=== PATIENT | female | born 1985 | race African-American/Black ===

== ENCOUNTER 2016-09-27 13:01 | Inpatient (IN) | payer OTHER ==
[~2016-09-27] VITALS: Ht 162.6 cm; Wt 84.2 kg
[2016-09-27 13:18] VITALS: Ht 162.6 cm; Wt 84.2 kg
[2016-09-27] MEDS ORDERED: ACETAMINOPHEN 325 MG TAB PO PRN (14:00)
[2016-09-27 14:21] LABS: ADD SCAN DIFF NO
[2016-09-27] MEDS ORDERED: GLUCOSE GEL 15 GRAM TUBE PO PRN ×2 (14:30)
[2016-09-27] MEDS ORDERED: GLUCOSE GEL 15 GRAM TUBE BUCCAL PRN (14:30)
[2016-09-27] MEDS ORDERED: GLUCAGON 1 MG INJ IM PRN (14:30)
[2016-09-27] MEDS ORDERED: DEXTROSE 50% 50 ML SYRINGE IV PRN ×2 (14:30)
[2016-09-27 14:36] LABS: ALBUMIN 3.9 g/dl (3.3-4.9)
[2016-09-27 14:37] LABS: INR 0.9; POTASSIUM 3.8 mmol/L (3.5-5.1); PROTIME 12.1 Sec (12.2-14.2); PT RATIO 0.9
[2016-09-27 14:38] LABS: PARTIAL THROMBOPLASTIN TIME 25.1 Sec (25.0-35.0)
[2016-09-27 14:39] LABS: ALBUMIN/GLOBULIN RATIO 1.05; BILIRUBIN,INDIRECT 0.5 mg/dl (0-1.1); BILIRUBIN,TOTAL 0.5 mg/dl (0.2-1.3); CREATININE 0.75 mg/dl (0.44-1.00); TOTAL PROTEIN 7.6 g/dl (6.1-8.1)
[2016-09-27 14:40] LABS: CALCIUM 9.5 mg/dl (8.4-10.2)
[2016-09-27] MEDS: LACTATED RINGER'S 1,000 ML IV SCH ×2 (16:21→21:57)
[2016-09-27 18:03] LABS: BASOPHILS % 0.2 % (0.0-2.0); EOSINOPHILS % 0.3 % (0.0-7.0); HEMATOCRIT 41.5 % (37.0-47.0); HEMOGLOBIN 13.4 g/dl (12.0-16.0); LYMPHOCYTES # 1.4 10^3/ul (0.8-2.9); LYMPHOCYTES % 16.2 % (15.0-51.0); MEAN CORPUSCULAR HEMOGLOBIN 30.9 pg (29.0-33.0); MEAN CORPUSCULAR HGB CONC 32.3 g/dl (32.0-37.0); MEAN CORPUSCULAR VOLUME 95.8 fl (82.0-101.0); MEAN PLATELET VOLUME 12.5 fl (7.4-10.4); MONOCYTE # 0.9 10^3/ul (0.3-0.9); MONOCYTES % 10.1 % (0.0-11.0); NEUTROPHIL # 6.3 10^3/ul (1.6-7.5); NEUTROPHILS % 72.5 % (39.0-77.0); PLATELET COUNT 189 10^3/UL (140-415); RED BLOOD COUNT 4.33 10^6/ul (4.20-5.40); RED CELL DISTRIBUTION WIDTH 14.6 % (11.5-14.5); WHITE BLOOD COUNT 8.7 10^3/ul (4.8-10.8)
[2016-09-27] MEDS: MULTIVIT/MIN/FOLATE/IRON/PREN TAB PO SCH (18:41)
[2016-09-27] MEDS ORDERED: ACCU-CHEK XX SCH (20:05)
[2016-09-27] MEDS ORDERED: metFORMIN 850 MG TAB PO SCH (21:00)
[2016-09-27] MEDS ORDERED: ACYCLOVIR 400 MG TAB PO SCH (22:00)
[2016-09-28] MEDS: LACTATED RINGER'S 1,000 ML IV SCH ×2 (05:55→15:00)
[2016-09-28] MEDS ORDERED: metFORMIN 850 MG TAB PO SCH (08:00)
[2016-09-28] MEDS ORDERED: ACYCLOVIR 400 MG TAB PO SCH (09:00)
[2016-09-28] MEDS: MULTIVIT/MIN/FOLATE/IRON/PREN TAB PO SCH (09:05)
[2016-09-28] MEDS ORDERED: DEXTROSE 5%-LR 1,000 ML IV SCH (15:10)
[2016-09-28] MEDS ORDERED: CITRIC ACID/NA CITRATE 30 ML CUP ONE (16:41)
[2016-09-28] MEDS ORDERED: FAMOTIDINE 20 MG INJ ONE (16:41)
[2016-09-28] MEDS ORDERED: ONDANSETRON 4 MG INJ ONE ×2 (16:42→17:26)
[2016-09-28] MEDS ORDERED: morphine SULFATE/PF (10 MG/10 ML) INJ ONE (16:48)
[2016-09-28] MEDS ORDERED: FENTAnyl 50 MCG/ML VIAL ONE (16:48)
[2016-09-28] MEDS ORDERED: OXYTOCIN 30 UNITS/LR 500 ML IV PRN ×2 (17:00→21:00)
[2016-09-28] MEDS ORDERED: METHYLERGONOVINE 0.2 MG INJ IM PRN ×2 (17:00→21:00)
[2016-09-28] MEDS ORDERED: MISOPROSTOL 200 MCG TAB PR PRN ×2 (17:00→21:00)
[2016-09-28] MEDS ORDERED: CARBOPROST 250 MCG INJ IM PRN ×2 (17:00→21:00)
[2016-09-28] MEDS ORDERED: CEFAZOLIN 2 GM/50 ML (PMX) 50 ML IV SCH (17:00)
[2016-09-28] MEDS ORDERED: OXYTOCIN 30 UNITS/LR 500 ML IV SCH ×2 (17:00→19:00)
[2016-09-28] MEDS ORDERED: LACTATED RINGER'S 1,000 ML IV ONE (17:12)
--- NOTE | 2016-09-28 17:17 | PREOPHP ---
DATE OF ADMISSION: 09/27/2016 HISTORY OF PRESENT ILLNESS: A 30-year-old female 1, para 0, estimated delivery date 017 was admitted on 09/27/2016 after having an ultrasound in antepartum unit which revealed oligohyd ramnios. PAST MEDICAL HISTORY: Unremarkable. ALLERGIES: NO KNOWN ALLERGIES. FAMILY HISTORY: Noncontributory. PHYSICAL EXAMINATION: VITAL SIGNS: Patient is afebrile. Vital signs stable. HEAD, NECK AND CHEST: Within normal limits. ABDOMEN: Soft, nontender and gravid. EXTREMITIES: Within normal limits. NEUROLOGIC: Within normal limits. HOSPITAL COURSE: Patient with history of gestational diabetes. Patient had an ultrasound on 2016 which revealed oligohydramnios. Per recommendation of perinatologist, the patient was admitted to antepartum unit and given IV hydration. The patient has been scheduled for primary sec tion on 09/28/2016. The patient with history of genital herpes in the past. The patient has been o n suppressive therapy with acyclovir. Obstetric ultrasound also revealed breech presentation. The patient has been requesting for elective primary section since the patient does not desire to go through labor. The patient is for delivery by primary section. Risks, benefits and alternatives of the procedure were explained to the patient. The patient said she understood and ga ve informed consent for the procedure. Dictated By: AMAURI CABRERA/KHURRAM Conf#: [id number] DID#: [id number]
[2016-09-28] MEDS ORDERED: ONDANSETRON 4 MG INJ IV PRN ×2 (17:30→18:30)
[2016-09-28] MEDS ORDERED: MEPERIDINE 25 MG INJ IV PRN (17:30)
[2016-09-28] MEDS ORDERED: KETOROLAC 30 MG INJ IV PRN ×2 (17:30→18:30)
[2016-09-28] MEDS ORDERED: HYDROmorphONE (0.2 MG/ML) 10ML SYG IV PRN (17:30)
[2016-09-28] MEDS ORDERED: PROCHLORPERAZINE 10 MG INJ IV PRN ×2 (17:30→18:30)
[2016-09-28] MEDS ORDERED: DIPHENHYDRAMINE 50 MG INJ IV PRN ×2 (17:30→18:30)
[2016-09-28] MEDS ORDERED: CITRIC ACID/NA CITRATE 30 ML CUP PO ONE (17:30)
[2016-09-28] MEDS ORDERED: METOCLOPRAMIDE 10 MG INJ IV ONE (17:30)
[2016-09-28] MEDS ORDERED: FENTAnyl 50 MCG/ML VIAL IV PRN (17:30)
[2016-09-28] MEDS ORDERED: FAMOTIDINE 20 MG INJ IV ONE (17:30)
[2016-09-28] MEDS ORDERED: OXYTOCIN 30 UNITS/LR 500 ML IV ONE (17:40)
[2016-09-28] MEDS ORDERED: NALOXONE (0.4 MG/ML) INJ IV PRN (18:30)
[2016-09-28] MEDS ORDERED: ZOLPIDEM 5 MG TAB PO PRN (18:30)
[2016-09-28] MEDS ORDERED: HYDROmorphONE 1 MG/ML SYG IV PRN ×2 (18:30)
[2016-09-28] MEDS ORDERED: ONDANSETRON 4 MG INJ IV ONE (18:30)
--- NOTE | 2016-09-28 18:43 | OPR ---
DATE OF OPERATION: 09/28/2016 PREOPERATIVE DIAGNOSES: at 39 weeks with gestational diabetes, breech presentation and oligohydramnios. POSTOPERATIVE DIAGNOSES: at 39 weeks with gestational diabetes, breech presentation and oligohydramnios. OPERATION PERFORMED: Primary low transverse section. SURGEON: Amauri Mitchell MD. POLISHER BRASS: Dr. Worthington. ANESTHESIA: Spinal. ANESTHESIOLOGIST: Dr. Wolff PROCEDURE: The patient was taken to operating room and placed on the operating table. After successful spinal anesthesia was given, the patient was placed in supine position. The area was prepared and draped in the usual sterile fashion. Spinal anesthesia was tested and was satisfactory. Using a scalpel, Pfannenstiel incision was made about 2 fingerbreadths above the symphysis pubis. The incision was carried to the fascia. The fascia was incised and extended bilaterally with Pinzon scissors. Two Hetal's were used to separate the fascia from the muscle. The muscle was dissected down to peritoneum. The peritoneum was bluntly entered. Using a scalpel, a small transverse incision was made in the lower uterine segment of uterus. Upon entering the uterine cavity, bandage scissors were inserted to extend the incision and curved up. Baby was delivered from [place] breech presentation. After suctioning clear of amniotic fluid, the baby was handed off to the product marketing manager in attendance. Apgars were 7 and 9. The placenta was delivered without difficulty. The uterus was closed with #1 Monocryl continuous locking fashion. After assuring hemostasis, both ovaries and tubes were inspected, all looked normal. The peritoneal cavity was irrigated with warm saline. The peritoneum was closed with 2-0 Vicryl continuous. The fascia was closed with #1 continuous in 2 segments. The skin was closed with blair. ESTIMATED BLOOD LOSS: 600 mL. COMPLICATIONS: None. COUNTS: All counts were correct. Dictated By: AMAURI MITCHELL MD GD/NTS Conf#: [id number] DID#: [id number] MTDD
--- NOTE | 2016-09-28 19:32 | DELSUM ---
Delivery Summary A-C Datetime Report Generated by CPN: 09/28/2016 19:32 DELIVERY PERSONNEL Children Teacher: Chen Howard MATERNAL INFORMATION Delivery Anesthesia: Spinal Medications in Delivery: SEE ANESTHESIA NOTE Estimated Blood Loss (ml): 600 Placenta Cultured: No Maternal Complications: Other Other Maternal Complications: GDM, OLIGOHYDRAMNIOS, BREECH LABOR SUMMARY EDC: 10/05/2016 00:00 No. Babies in Womb: 1 Attempted: No Labor Anesthesia: None LABOR INFORMATION Reason for Induction: Oligohydramnios; Other Reason for Induction- Other: GDM Oxytocin: N/A Group B Beta Strep: Positive Antibiotics # of Doses: 1 Antibiotics Time of Last Dose: 09/28/2016 17:03 Steroids Given: None Reason Steroids Not Administered: Not Applicable MEMBRANES Membranes Rupture Method: Artificial Rupture of Membranes: 09/28/2016 17:19 Length of Rupture (hr): 0.03 Amniotic Fluid Color: Clear Amniotic Fluid Amount: Small Amniotic Fluid Odor: Normal STAGES OF LABOR Stage 3 hr: 0 Stage 3 min: 1 CSECTION DELIVERY Primary Indication: Breech Presentation Other Primary Indication: LOW UZIEL Other Secondary Indication: GDM CSection Urgency: Elective CSection Incidence: Primary Labor: No Labor Elective: Elective CSection Incision: Lower Uterine Transverse BABY A INFORMATION Infant Delivery Date/Time: 09/28/2016 17:21 Method of Delivery: Born in Route : No : N/A Forceps: N/A Vacuum Extraction: N/A Shoulder Dystocia : N/A SHOULDER DYSTOCIA BABY A Delivery Date/Time: 09/28/2016 17:21 PRESENTATION/POSITION BABY A Presentation: Breech Cephalic Presentation: N/A Vertex Position: N/A Breech Presentation: Complete PLACENTA INFORMATION BABY A Placenta Delivery Time : 09/28/2016 17:22 Placenta Method of Delivery: Manual Removal Placenta Status: Delivered SCORES BABY A Heart Rate 1 min: >100 bpm Resp Effort 1 min: Slow, Irregular Reflex Irritability 1 min: Cough/Sneeze/Pulls Away Muscle Tone 1 min: Active Motion Color 1 min: Blue/Pale Resuscitation Effort 1 min: Tactile Stimulation; Oxygen SCORE 1 MIN: 7 Heart Rate 5 min: >100 bpm Resp Effort 5 min: Good Cry Reflex Irritability 5 min: Cough/Sneeze/Pulls Away Muscle Tone 5 min: Active Motion Color 5 min: Body [place], Extremit Blue Resuscitation Effort 5 min: Tactile Stimulation SCORE 5 MIN: 9 INFANT INFORMATION BABY A Gestational Age at Delivery: 39.0 Gestational Status: Full Term- 39- 40.6 Weeks Outcome : Liveborn Condition : Stable Infant Sex: Male IDENTIFICATION/MEDS BABY A ID Band Number: [id number] ID Band Location: Right Leg; Left Arm Sensor Applied: Yes Sensor Number: [id number] Sensor Location : Cord Clamp Vitamin K Given : Not Given Erythromycin Given: Not Given WEIGHT/LENGTH BABY A Birthweight (gm): 3335 Infant Weight (lb): 7 Infant Weight (oz): 6 Length (in): 19.00 Infant Length (cm): 48.26 CORD INFORMATION BABY A No. Cord Vessels: 3 Nuchal Cord : N/A Cord Blood Taken: Yes Suction: Mouth; Nose ASSESSMENT BABY A Infant Complications: None Physical Findings at Delivery: Within Normal Limits Respirations: Appears Normal Bacteriologist Food/ALS Called : Yes Care By: RN AND RT Transferred To: Remains with Mother
[2016-09-28] MEDS ORDERED: LANOLIN 7 GM TUBE TOP PRN (21:00)
[2016-09-28] MEDS: SENNA/DOCUSATE NA (8.6MG/50MG) TAB PO SCH (21:00)
[2016-09-28] MEDS ORDERED: OXYCODONE/ACETAMINOPHEN (5/325) TAB PO PRN ×2 (21:00)
[2016-09-28 21:45] VITALS: BP 104/63; PULSE 85; RESP 18
[2016-09-28] MEDS: IBUPROFEN 800 MG TAB PO SCH (22:00)
[2016-09-28] MEDS ORDERED: IBUPROFEN 800 MG TAB PO SCH (22:00)
[2016-09-28] MEDS: OXYTOCIN 30 UNITS/LR 500 ML IV SCH (22:35)
[2016-09-29] VITALS: BP 106/64; PULSE 80; RESP 19
[2016-09-29] MEDS: OXYTOCIN 30 UNITS/LR 500 ML IV SCH (00:58)
[2016-09-29] MEDS: LACTATED RINGER'S 1,000 ML IV SCH ×5 (02:41→22:42)
[2016-09-29 04:00] VITALS: BP 134/79; PULSE 86; RESP 19
[2016-09-29 07:35] LABS: ADD SCAN DIFF NO
[2016-09-29 07:44] LABS: BASOPHILS % 0.1 % (0.0-2.0); EOSINOPHILS % 0.2 % (0.0-7.0); HEMATOCRIT 30.8 % (37.0-47.0); HEMOGLOBIN 10.4 g/dl (12.0-16.0); LYMPHOCYTES # 0.9 10^3/ul (0.8-2.9); LYMPHOCYTES % 10.7 % (15.0-51.0); MEAN CORPUSCULAR HEMOGLOBIN 32.4 pg (29.0-33.0); MEAN CORPUSCULAR HGB CONC 33.8 g/dl (32.0-37.0); MONOCYTE # 0.7 10^3/ul (0.3-0.9); MONOCYTES % 8.4 % (0.0-11.0); NEUTROPHILS % 80.1 % (39.0-77.0); PLATELET COUNT 156 10^3/UL (140-415); RED BLOOD COUNT 3.21 10^6/ul (4.20-5.40); RED CELL DISTRIBUTION WIDTH 14.1 % (11.5-14.5); WHITE BLOOD COUNT 8.7 10^3/ul (4.8-10.8)
[2016-09-29] MEDS: IBUPROFEN 800 MG TAB PO SCH ×3 (08:00→21:53)
[2016-09-29 08:30] VITALS: BP 104/55; PULSE 76; RESP 18
[2016-09-29] MEDS: SENNA/DOCUSATE NA (8.6MG/50MG) TAB PO SCH ×2 (09:00→21:53)
--- NOTE | 2016-09-29 11:12 | QN ---
Documentation Comment No complaint Afebrile VSS Abdomen soft ND POD #1 Stable Ambulate, Advance diet. AMAURI ASENCIO MD Sep 29, 2016 11:12
[2016-09-29 12:00] VITALS: BP 104/54; PULSE 74; RESP 18
[2016-09-29 15:50] VITALS: BP 103/59; PULSE 85; RESP 18
[2016-09-29 20:00] VITALS: BP 121/65; PULSE 103; RESP 19
[2016-09-30 03:57] VITALS: BP 104/57; PULSE 88; RESP 18
[2016-09-30] MEDS: IBUPROFEN 800 MG TAB PO SCH ×3 (05:38→22:37)
[2016-09-30 09:00] VITALS: BP 117/69; PULSE 100
[2016-09-30] MEDS: SENNA/DOCUSATE NA (8.6MG/50MG) TAB PO SCH ×2 (09:57→22:37)
[2016-09-30] MEDS: LACTATED RINGER'S 1,000 ML IV SCH (12:58)
--- NOTE | 2016-09-30 14:05 | QN ---
Documentation Comment Nocomplaint Afebrile VSS Abdomen soft Stable Continue present care. AMAURI ASENCIO MD Sep 30, 2016 14:05
[2016-09-30 17:00] VITALS: BP 108/58; PULSE 79; RESP 18
[2016-09-30 20:00] VITALS: BP 106/60; PULSE 80; RESP 20
[2016-10-01 04:00] VITALS: PULSE 73; RESP 20
[2016-10-01] MEDS: IBUPROFEN 800 MG TAB PO SCH ×2 (06:39→15:06)
[2016-10-01 07:59] VITALS: BP 94/71; PULSE 100; RESP 18
[2016-10-01] MEDS: SENNA/DOCUSATE NA (8.6MG/50MG) TAB PO SCH ×2 (08:44→21:00)
[2016-10-01] MEDS ORDERED: DIPHTH/TET/ACEL PERTUSS (ADULT) 0.5 ML VIAL IM* ONE (09:00)
[2016-10-01 16:00] VITALS: BP 114/76; PULSE 68; RESP 18
[2016-10-01 19:57] VITALS: BP 119/72; PULSE 88; RESP 20
--- NOTE | 2016-10-02 05:05 | DS ---
DATE OF ADMISSION: 09/27/2016 DATE OF DISCHARGE: 10/01/2016 ADMITTING DIAGNOSIS: at term with gestational diabetes and oligohydramnios. HISTORY: A 30-year-old female 1, para 0 at time of admission, para 1 at time of discharge w ith term , delivered due to oligohydramnios. The course significant for gestation al diabetes. On 09/28/2016 after obtaining informed consent, the patient underwent a primary low tr ansverse section due to breech presentation. The patient's operation was uncomplicated. P ostoperatively, the patient was given clear liquid diet, which was advanced to regular diet, which s he tolerated well. Patient is discharged on postop day #3 having had an adequate bladder and bowel function. CONDITION ON DISCHARGE: Stable. DISCHARGE INSTRUCTIONS: Diet is regular. Activity is pelvic rest and no strenuous activities. MEDICATIONS: Motrin as needed for pain, continue with vitamins and ferrous sulfate. FOLLOWUP: Follow up in clinic in 4 days. FINAL DIAGNOSES: 1. Term , delivered by section. 2. Breech presentation. 3. Gestational diabetes. 4. Oligohydramnios. 5. Mother with single liveborn. Dictated By: AMAURI CABRERA/NTS Conf#: [id number] DID#: [id number]
== END 2016-10-01 21:40 | disposition home or self-care (01) | DRG 766 ==
LOC: OBG 13:01 → L-D 09-28 16:33 → PP1 09-28 21:56
PROVIDERS: ADMIT Obstetrics & Gynecology; ATTEND Obstetrics & Gynecology
PROC: 10D00Z1 Extraction of Products of Conception, Low, Open Approach (ICD-10-PCS; principal; 2016-09-28 17:00)
DX: O41.03X0 Oligohydramnios, third trimester, not applicable or unspecified (principal); O24.429 Gestational diabetes mellitus in childbirth, unspecified control; O32.1XX0 Maternal care for breech presentation, not applicable or unspecified; O99.824 Streptococcus B carrier state complicating childbirth; Z3A.39 39 weeks gestation of pregnancy; Z37.0 Single live birth
CPT/HCPCS: 80053; 82962; 85025; 85384; 85610; 85730; 86592; 86900; 86901; 88307; 90715; 94760; 99464; J0690; J1885; J2210; J2274; J2405; J2590; J3010; J7120; J7121